=== PATIENT | male | born 1925 | race Caucasian/White ===

== ENCOUNTER 2016-09-09 13:23 | Emergency (ER) | payer OTHER ==
--- NOTE | 2016-09-09 13:47 | ED.PDOC ---
History of Present Illness - General Chief Complaint: Cardiac Respiratory Arrest Stated Complaint: cardiac arrest Time Seen by Provider: 09/09/16 13:46 Source: EMS notes reviewed Exam Limitations: no limitations, physical impairment, other - unresponsive - History of Present Illness Initial Comments: Pascual Pablo 89 y/o male with history of dm,cad,htn,afib on oysterman noac brought by ems after they were called by family members that patient was not responsive and not breathing .He was found to be awake at 1100 hour today and about 1300h unresponsive at his room on ems arrival monitor showing asystole no spontaneous respiration cpr was initiated and intubated, given 2 doses of epinephrine also his pacemaker not showing rhythm.He was brought to [facility] ER and monitor showing asystole,bagging thru et tube chest compression continued no carotid pulses felt. Timing/Duration: 1-3 hours Severity: severe Activities at Onset: other - unresponsive,no spontaneous respiration Improving Factors: nothing Worsening Factors: nothing Nitro Today/Relief: no nitro taken today Aspirin Treatment Today: no aspirin today Associated Symptoms: denies symptoms Allergies/Adverse Reactions: Allergies Penicillins Allergy (Verified 09/09/16 13:50) Review of Systems - Review of Systems Unable to Obtain Due To: intubated, clinical condition Past Medical History (General) - Patient Medical History Hx Pacemaker: Yes Hx Hypertension: Yes Hx Diabetes: Yes Surgical History: pacemaker, other - abdominal surgery - Activities of Daily Living Patient Lives Alone: No - family Family Medical History - Family History Father Family History: Unknown Living Status: Unknown Physical Exam - Physical Exam General Appearance: Other - unresponsive,intubated Eyes, Ears, Nose, Throat Exam: other - pupils no reactive Neck: normal inspection Respiratory: other - no spontaneous respiration,intubated Cardiovascular/Chest: other - no carotid pulses palpated Peripheral Pulses: radial,right: 0, radial,left: 0 Gastrointestinal/Abdominal: soft, no organomegaly, distended, other - scars from previous surgey Extremity: pedal edema - trace, other - limp, Neurologic: other - unresponsive Skin Exam: cyanosis Progress - Progress Progress: 09/09/16 14:06 chest compression continued and ambu bagging additional epinephrine iv given every 3 minutes but no carotid pulses felt monitor showing asystole so further cardiac resuscitation discontinued and talked to daughter about her dads condition not responding to resuscitative measure with his other co morbid illness . Departure - Departure Clinical Impression: Cardiac arrest due to underlying cardiac condition, Cardiac arrest, History of chronic atrial fibrillation, History of diabetes mellitus, History of coronary artery disease Time of Disposition: 14:16 Disposition: Transfer to [facility] Hospital Departure Forms: ED Discharge - Pt. Copy, Patient Portal Self Enrollment Referrals: Fito Albert MD [Primary Care Provider] - 1-2 Weeks
[2016-09-09 13:50] VITALS: BP 0/0; TEMP 96.8; O2SAT 94
[2016-09-09] MEDS ORDERED: EPINEPHrine INJ 0.1 MG/ML 10 ML SYG ONE (14:00)
== END 2016-09-09 13:34 | disposition expired ==
LOC: ER 13:23 → EDBD 13:23 → MERGE 13:23 → ER 13:34
DX: I25.10 Atherosclerotic heart disease of native coronary artery without angina pectoris (principal); I48.91 Unspecified atrial fibrillation; I46.2 Cardiac arrest due to underlying cardiac condition; Z95.0 Presence of cardiac pacemaker; E11.9 Type 2 diabetes mellitus without complications; I10 Essential (primary) hypertension; Z88.0 Allergy status to penicillin